=== PATIENT | male | born 1960 | race Caucasian/White ===

== ENCOUNTER 2020-11-23 08:51 | Emergency (ER) | payer OTHER ==
[~2020-11-23] VITALS: Ht 172.7 cm; Wt 100.0 kg
[~2020-11-23 08:51] MED LIST: BACTROBAN21 EX; CELEBREX200 MG OR; CEPHALEXIN500 MG OR; CHOLESTEROL MED; KEFLEX500 MG OR; LORTAB 5 OR; LOTENSIN OR; NEURONTIN300 MG OR; PAXIL20 MG OR; ZEBETA10 MG OR
[2020-11-23] MEDS ORDERED: OFLOXACIN0.3 % OD (09:49)
[2020-11-23 10:00] VITALS: BP 143/74
== END 2020-11-23 10:00 | disposition home or self-care (01) | DRG 125 ==
LOC: ED 08:51
DX: T15.91XA Foreign body on external eye, part unspecified, right eye, initial encounter (principal); I10 Essential (primary) hypertension; X58.XXXA Exposure to other specified factors, initial encounter